=== PATIENT | male | born 1990 | race Caucasian/White ===

== ENCOUNTER 2019-03-20 14:39 | Emergency (ER) | payer MEDICAID ==
[~2019-03-20] VITALS: Ht 170.2 cm; Wt 65.8 kg
[2019-03-20 14:49] VITALS: BP 151/77
--- NOTE | 2019-03-20 15:30 | NUR ---
Pt ambulated to bed 11, provided urine cup.
--- NOTE | 2019-03-20 16:07 | NUR ---
pt arrived to ed c/o abd pain x 2 days. pt rates pain 8/10, and describes as sharp and tightness. bowel sounds present in all quads, tenderness on right upper and lower quad that radiates to right flank. pt is a &o x 4, pt is shaky and jittery. pt states, "im in the middle of detoxing and this is my day 2 and i feel jittery and in pain." pt states last drink was 2-3days ago. vs stable. no resp distress. pt denies dysuria. pt also states he vomitted this morning. pmh: alcohol abuse nka.
[2019-03-20] MEDS ORDERED: ONDANSETRON 4 MG/2 ML VIAL IVP ONE (16:20)
[2019-03-20] MEDS ORDERED: KETOROLAC 30 MG/ML VIAL IVP ONE (16:20)
[2019-03-20] MEDS ORDERED: NACL 0.9% 1,000 ML IV ONE (16:20)
[2019-03-20 17:01] LABS: BASOPHILS % (AUTO) 0.9 % (0.0-2.0); EOSINOPHILS % (AUTO) 0.6 % (0.0-4.0); HEMATOCRIT 38.7 % (36-52); HEMOGLOBIN 12.8 g/dL (12.0-18.0); LYMPHOCYTES # (AUTO) 0.7 K/uL (2.0-11.5); LYMPHOCYTES % (AUTO) 32.3 % (20.5-51.1); MEAN CORPUSCULAR HEMOGLOBIN 32 pg (27-31); MEAN CORPUSCULAR HGB CONC 33 g/dL (33-37); MEAN CORPUSCULAR VOLUME 98.2 fL (80-94); MONOCYTES # (AUTO) 0.4 K/uL (0.8-1.0); MONOCYTES % (AUTO) 18.9 % (1.7-9.3); NEUTROPHILS # (AUTO) 1.1 K/uL (1.8-7.7); NEUTROPHILS % (AUTO) 47.3 % (42.2-75.2); PLATELET COUNT (AUTO) 51 K/uL (140-450); RED BLOOD CELL COUNT(AUTO) 3.95 MIL/uL (4.20-6.10); RED CELL DISTRIBUTION WIDTH 14.5 % (11.6-13.7); WHITE BLOOD COUNT (AUTO) 2.3 K/uL (4.8-10.8)
[2019-03-20] MEDS ORDERED: LORazepam 2 MG/ML VIAL IVP ONE (17:10)
[2019-03-20 17:31] LABS: ALBUMIN 4.4 g/dL (3.4-5.0); ANION GAP 16.1 (8-16); CARBON DIOXIDE 29.2 mmol/L (21-32); CREATININE 0.7 mg/dL (0.7-1.3); POTASSIUM 3.3 mmol/L (3.5-5.1); TOTAL BILIRUBIN 0.8 mg/dL (0.0-1.0)
[2019-03-20 18:20] VITALS: BP 123/70
--- NOTE | 2019-03-20 18:20 | NUR ---
Patient discharged with v/s stable. Written and verbal after care instructions given and explained. Patient alert, oriented and verbalized understanding of instructions. Ambulatory with steady gait. All questions addressed prior to discharge. ID band removed. Patient advised to follow up with PMD. Rx of ZOFRAN, XANAX, MOTRIN given. Patient educated on indication of medication including possible reaction and side effects. Opportunity to ask questions provided and answered.
== END 2019-03-20 18:20 | disposition home or self-care (01) ==
LOC: MED 14:39
DX: K70.10 Alcoholic hepatitis without ascites (principal); F10.239 Alcohol dependence with withdrawal, unspecified
CPT/HCPCS: 36415; 80053; 83690; 85025; 96361; 96374; 96375; 99283; J1885; J2060; J2405; J7030